=== PATIENT | male | born 1965 | race Hispanic/Latino ===

== ENCOUNTER → 2020-02-23 | Day surgery (SDC) | payer BC, OTHER ==
[2020-02-20 14:37] LABS: ANION GAP 18.8 mmol/L (8-16); BLOOD UREA NITROGEN 15 mg/dL (7-26); BUN/CREATININE RATIO 20 (6-25); CALCIUM 9.6 mg/dL (8.4-10.2); CARBON DIOXIDE 24 mmol/L (22-29); CHLORIDE 99 mmol/L (98-107); CREATININE, SERUM 0.75 mg/dL (0.72-1.25); EST GLOMERULAR FILTRATION RATE > 60 ML/MIN (60-); GLUCOSE 202 mg/dL (74-118); POTASSIUM 4.8 mmol/L (3.5-5.1); SODIUM 137 mmol/L (136-145)
[~2020-02-23] MED LIST: ATORVASTATIN CA10 MG PO; CEFAZOLIN SOD 1 GM VIAL ONE; COQ-10100 MG PO; DEXAMETHASONE SOD PHOS INJ 4 MG/ML VIAL ONE; FENTANYL CITRATE/PF 100MCG/2 ML INJ ONE; JARDIANCE10 MG PO; LIDOCAINE 1% W/EPINEPHRINE 20 ML VIAL ONE; LIDOCAINE HCL 2% LOCAL INJ 5 ML SDV VIAL INJ ONE; LISINOPRIL2.5 MG PO; MELATONIN3 MG PO; METFORMIN HCL500 MG PO; MIDAZOLAM HCL 2 MG/2 ML VIAL ONE; MULTIVITAMINS1 EAC7 PO; ONDANSETRON HCL INJ 2MG/ML 2ML 2 MG/ML VIAL ONE; PROPOFOL IV EMULSION 10 MG/ML 20 ML VIAL ONE; ROCURONIUM BROMIDE 10 MG/ML 5ML VIAL IV ONE; SERTRALINE HCL50 MG PO; SEVOFLURANE INHAL SOLN 250 ML PEN BTL ONE; VITAMIN D PO
[2020-02-23 09:20] VITALS: BP 141/88
--- NOTE | 2020-02-23 12:08 | Operative Report ---
DATE OF PROCEDURE: 02/23/2020 SURGEON: Landry Leon MD PREOPERATIVE DIAGNOSIS: Multiple right neck enlarged lymph nodes. POSTOPERATIVE DIAGNOSIS: Multiple right neck enlarged lymph nodes. PROCEDURE: Excisional biopsy of right neck enlarged lymph node. SIGNIFICANT FINDINGS: 4 cm lymph node in the right neck at the junction of level 2 and level 3. CAREER DEVELOPMENT DIRECTOR: Maria Guadalupe Bradshaw MD. ANESTHESIA: General endotracheal tube anesthesia. SPECIMENS REMOVED: Right neck enlarged lymph node. ESTIMATED BLOOD LOSS: 10 mL. COMPLICATIONS: None. INDICATIONS: The patient is a 54-year-old [place] male with three months history of right neck masses, enlarging in size. He denies any pain or tenderness. He denies throat symptoms. He has no history of previous throat or neck surgery. He is a nonsmoker. CT neck on January 13, 2020 revealed significant right neck masses consistent with enlarged lymph nodes. Fine-needle aspiration biopsy on 01/17/2020 was limited by scant specimen, but was negative for squamous cell carcinoma or lymphoproliferative process. Flow cytometry was negative for non-Hodgkin's lymphoma. On examination, he has multiple nontender neck masses along the right neck. He is scheduled for excisional biopsy of a right neck enlarged lymph node under general anesthesia. Risks and complications of the procedure were thoroughly discussed with the patient and his and they include infection, bleeding, scarring, failure to improve, need for additional operations, possibility of malignancy and need for further treatment, damage to the carotid artery, jugular vein, vagus nerve, damage to the pharyngeal mucosa, damage to spinal accessory nerve resulting in shoulder immobility and pain, need for blood transfusions, damage to surrounding nerves, blood vessels, and muscles. The patient and his fully understood and gave consent. DESCRIPTION OF PROCEDURE: The patient was taken to the operating room and placed supine on the operating table where general anesthesia was achieved through orotracheal intubation. Eyes were taped. Shoulder roll was placed. Ancef was administered. Injection with 2 mL of 1% lidocaine with 1 to 100,000 epinephrine was injected along the natural skin crease two fingerbreadths inferior to the inferior border of the mandible on the right neck. The neck was then prepped and draped in the usual sterile fashion. An approximately 5 cm incision was then made along the natural skin crease, two fingerbreadths below the border of the mandible over a palpable enlarged lymph node that was present at the junction of right level two and level three. The incision was made with a 15 blade. The incision was made past the platysmal layer. Further dissection of the soft tissues then encountered the enlarged lymph node. This was then dissected, staying on the capsule of the neck mass. There was some degree of inflammation and scarring, though the plane could be seen throughout. The mass was removed in its entirety. The carotid artery and jugular vein were seen to be intact and without damage after removal of the lymph node. The mass measured 4 cm x 3 cm. A small piece of the mass was then sectioned and sent for cultures for aerobic, AFB and fungal cultures. The rest of the mass was sent fresh for permanent section analysis to pathology. Hemostasis was then obtained with judicious use of bipolar cautery, taking care to avoid any trauma to the carotid sheath structures. No evidence of bleeding was seen on Valsalva. The wound was then repaired with interrupted 4-0 Monocryl to the platysmal layer followed by interrupted 4-0 Monocryl through the subcuticular layer followed by Dermabond. The patient was awakened in the operating room, extubated, and taken to the recovery room in good condition. Landry Leon MD JKY/MODL /[id number]
== END | disposition home or self-care (01) ==
LOC: OR 05:00
PROVIDERS: ATTEND Otolaryngology
DX: C81.91 Hodgkin lymphoma, unspecified, lymph nodes of head, face, and neck (principal); E11.9 Type 2 diabetes mellitus without complications; E78.00 Pure hypercholesterolemia, unspecified; F41.9 Anxiety disorder, unspecified; F17.210 Nicotine dependence, cigarettes, uncomplicated; Z91.041 Radiographic dye allergy status; Z01.810 Encounter for preprocedural cardiovascular examination; Z01.812 Encounter for preprocedural laboratory examination; Z11.59 Encounter for screening for other viral diseases; Z79.84 Long term (current) use of oral hypoglycemic drugs
CPT/HCPCS: 36415 ×2; 38510; 80048; 82948; 87071; 87075; 87102; 87116; 87205; 87206 ×2; 88305; 93005; J0690; J1100; J2001; J2250; J2405; J2704; J3010; U0002; 88304